=== PATIENT | female | born 1980 | race Caucasian/White ===

== ENCOUNTER 2017-04-15 05:33 | Inpatient (IN) | payer OTHER ==
[2017-04-15] MEDS ORDERED: MIDAZOLAM 1 MG/ML 2 ML INJ (06:46)
[2017-04-15] MEDS ORDERED: GLYCOPYRROLATE 0.4 MG INJ (06:46)
[2017-04-15] MEDS ORDERED: ROCURONIUM 50 MG INJ ×2 (06:46→07:00)
[2017-04-15] MEDS ORDERED: LIDOCAINE 2% (SDV) 5 ML INJ (06:46)
[2017-04-15] MEDS ORDERED: PROPOFOL 20 ML (06:46)
[2017-04-15] MEDS ORDERED: NEOSTIGMINE 3 MG/3 ML SYRINGE (06:46)
[2017-04-15] MEDS ORDERED: FENTAnyl 50 MCG/ML VIAL ×2 (06:47→09:36)
[2017-04-15] MEDS ORDERED: DEXAMETHASONE 4 MG/ML 1 ML INJ (06:52)
[2017-04-15] MEDS ORDERED: ONDANSETRON 4 MG INJ (06:53)
[2017-04-15] MEDS ORDERED: MEPERIDINE 25 MG INJ IV (07:00)
[2017-04-15] MEDS ORDERED: CEFAZOLIN 1 GM INJ (07:00)
[2017-04-15] MEDS ORDERED: hydrALAzine 20 MG INJ IV (07:00)
[2017-04-15] MEDS ORDERED: ONDANSETRON 4 MG INJ IV (07:00)
[2017-04-15] MEDS ORDERED: DIPHENHYDRAMINE 50 MG INJ IV (07:00)
[2017-04-15] MEDS ORDERED: FENTAnyl 50 MCG/ML VIAL IV ×2 (07:00)
[2017-04-15] MEDS ORDERED: LABETALOL HCL 20MG INJ IV (07:00)
[2017-04-15] MEDS ORDERED: MIDAZOLAM 1 MG/ML 2 ML INJ IV (07:00)
[2017-04-15] MEDS ORDERED: ATROPINE 1 MG/10 ML SYRINGE IV (07:00)
[2017-04-15] MEDS ORDERED: EPHEDrine SULFATE 50 MG/5 ML SYG IV (07:00)
[2017-04-15] MEDS ORDERED: LABETALOL HCL 20MG INJ (07:50)
[2017-04-15] MEDS ORDERED: hydrALAzine 20 MG INJ (07:58)
[2017-04-15] MEDS: BUPIVACAINE 0.25% (MPF) 30 ML INJ (08:15)
[2017-04-15] MEDS: GELATIN SIZE 100 SPONGE (08:56)
[2017-04-15] MEDS: HEPARIN 1000 UNITS/ML 10 ML INJ (08:57)
[2017-04-15] MEDS: THROMBIN 5000 UNIT VIAL (08:57)
[2017-04-15] MEDS: CEFAZOLIN 1 GM INJ (08:57)
[2017-04-15] MEDS ORDERED: LIDOCAINE 4% CR (09:33)
[2017-04-15] MEDS: CEFAZOLIN 2 GM/50 ML (PMX) 50 ML IVPB (11:19)
[2017-04-15] MEDS ORDERED: ZOLPIDEM 5 MG TAB PO (12:30)
[2017-04-15] MEDS ORDERED: DIPHENHYDRAMINE 50 MG CAP PO (12:30)
[2017-04-15] MEDS ORDERED: traMADol 50 MG TAB PO (12:30)
[2017-04-15] MEDS ORDERED: ACETAMINOPHEN 325 MG TAB PO (12:30)
[2017-04-15] MEDS ORDERED: TRIMETHOBENZAMIDE 100 MG/ML VIAL IM (12:30)
[2017-04-15] MEDS ORDERED: DIAZEPAM 5 MG/ML SYG IM (12:30)
[2017-04-15] MEDS ORDERED: NACL 0.9% 3 ML SYG IV (12:30)
[2017-04-15] MEDS ORDERED: PROCHLORPERAZINE 10 MG TAB PO (12:30)
[2017-04-15] MEDS ORDERED: NALOXONE (0.4 MG/ML) INJ IV (12:30)
[2017-04-15] MEDS ORDERED: BETHANECHOL 25 MG TAB PO (12:30)
[2017-04-15] MEDS: HYDROmorphONE 0.2 MG/ML PCA IV (12:50)
[2017-04-15] MEDS: DEXTROSE 5%-0.45% NACL 1,000 ML IV ×2 (14:18→22:22)
[2017-04-15] MEDS: CEPASTAT LOZENGE MT (14:22)
[2017-04-15] MEDS: ONDANSETRON 4 MG INJ IV ×2 (15:12→22:16)
[2017-04-15] MEDS: CEFAZOLIN 1 GM/50 ML (PMX) 50 ML IVPB (17:20)
[2017-04-15] MEDS: RANITIDINE 150 MG TAB PO (22:19)
[2017-04-16] MEDS: CEFAZOLIN 1 GM/50 ML (PMX) 50 ML IVPB ×3 (00:58→12:12)
[2017-04-16 05:32] LABS: HEMATOCRIT 24.8 % (37.0-47.0); HEMOGLOBIN 8.3 g/dl (12.0-16.0)
[2017-04-16 06:07] LABS: ANION GAP 10 (8-16); BLOOD UREA NITROGEN 8 mg/dl (7-20); CALCIUM 8.4 mg/dl (8.4-10.2); CARBON DIOXIDE 26 mmol/L (21-31); CHLORIDE 106 mmol/L (97-110); CREATININE 0.55 mg/dl (0.44-1.00); GLUCOSE 126 mg/dl (70-220); POTASSIUM 3.7 mmol/L (3.5-5.1); SODIUM 138 mmol/L (135-144)
[2017-04-16] MEDS: DEXTROSE 5%-0.45% NACL 1,000 ML IV (08:18)
[2017-04-16] MEDS: DOCUSATE SODIUM 100 MG CAP PO ×2 (08:26→20:08)
[2017-04-16] MEDS: RANITIDINE 150 MG TAB PO ×2 (08:26→20:08)
[2017-04-16] MEDS: FERROUS SULFATE (EC) 325 MG TAB PO ×3 (08:26→20:08)
[2017-04-16] MEDS: BETHANECHOL 25 MG TAB PO (08:26)
[2017-04-16] MEDS: ASCORBIC ACID 500 MG TAB PO ×2 (08:27→20:08)
[2017-04-16] MEDS ORDERED: SOD CHLORIDE 0.9% 250 ML IV ×2 (08:30→09:30)
[2017-04-16] MEDS: traMADol 50 MG TAB PO (09:05)
[2017-04-16] MEDS: SOD CHLORIDE 0.9% 250 ML IV (09:17)
[2017-04-16 09:54] LABS: ADD UMIC YES; UR ASCORBIC ACID NEGATIVE (NEGATIVE); UR BILIRUBIN (Dip) NEGATIVE (NEGATIVE); UR BLOOD (Dip) 1+ mg/dL (NEGATIVE); UR CLARITY CLEAR (CLEAR); UR COLOR STRAW (YELLOW); UR GLUCOSE (Dip) NEGATIVE (NEGATIVE); UR KETONES (Dip) NEGATIVE (NEGATIVE); UR LEUKOCYTE ESTERASE (Dip) NEGATIVE Leu/ul (NEGATIVE); UR NITRITE (Dip) NEGATIVE (NEGATIVE); UR RBC 1 /HPF (0-5); UR SPECIFIC GRAVITY (Dip) 1.004 (1.003-1.030); UR TOTAL PROTEIN (Dip) NEGATIVE (NEGATIVE); UR UROBILINOGEN (Dip) NEGATIVE (NEGATIVE); UR WBC 0 /HPF (0-5)
[2017-04-16] MEDS ORDERED: OXYCODONE/ACETAMINOPHEN (5/325) TAB PO (12:00)
[2017-04-16] MEDS: OXYCODONE/ACETAMINOPHEN (5/325) TAB PO ×3 (12:12→20:08)
[2017-04-16 13:10] LABS: HEMOGLOBIN 8.2 g/dl (12.0-16.0)
[2017-04-16 15:25] LABS: IRON 63 ug/dl (35-150)
[2017-04-16 15:34] LABS: % IRON SATURATION 22 % SAT (22-52); TOTAL IRON BINDING CAPACITY 282 ug/dl (241-421)
[2017-04-16 16:28] LABS: FERRITIN 59.4 ng/ml (6.2-137.0)
[2017-04-17] MEDS: OXYCODONE/ACETAMINOPHEN (5/325) TAB PO ×6 (00:07→17:33)
[2017-04-17] MEDS: DIAZEPAM 5 MG TAB PO (03:25)
[2017-04-17] MEDS: AL HYDROX/MG HYDROX/SIMETH 30 ML CUP PO (04:11)
[2017-04-17 06:04] LABS: ADD MAN DIFF? NO
[2017-04-17 06:24] LABS: BASOPHILS % 0.2 % (0.0-2.0); EOSINOPHILS # 0.1 10^3/ul (0.0-0.5); EOSINOPHILS % 0.9 % (0.0-7.0); HEMATOCRIT 25.7 % (37.0-47.0); HEMOGLOBIN 8.3 g/dl (12.0-16.0); LYMPHOCYTES # 2.7 10^3/ul (0.8-2.9); LYMPHOCYTES % 24.6 % (15.0-51.0); MEAN CORPUSCULAR HEMOGLOBIN 31.3 pg (29.0-33.0); MEAN CORPUSCULAR HGB CONC 32.3 g/dl (32.0-37.0); MEAN PLATELET VOLUME 9.5 fl (7.4-10.4); MONOCYTES % 9.4 % (0.0-11.0); NEUTROPHIL # 7.1 10^3/ul (1.6-7.5); NEUTROPHILS % 64.5 % (39.0-77.0); PLATELET COUNT 195 10^3/UL (140-415); RED BLOOD COUNT 2.65 10^6/ul (4.20-5.40); RED CELL DISTRIBUTION WIDTH 12.7 % (11.5-14.5)
[2017-04-17 06:56] LABS: ALANINE AMINOTRANSFERASE 27 IU/L (13-69); ALBUMIN 3.2 g/dl (3.3-4.9); ALBUMIN/GLOBULIN RATIO 1.14; ALKALINE PHOSPHATASE 43 IU/L (42-121); ANION GAP 11 (8-16); ASPARTATE AMINO TRANSFERASE 18 IU/L (15-46); BILIRUBIN,INDIRECT 0.3 mg/dl (0-1.1); BILIRUBIN,TOTAL 0.3 mg/dl (0.2-1.3); BLOOD UREA NITROGEN 9 mg/dl (7-20); CALCIUM 8.9 mg/dl (8.4-10.2); CARBON DIOXIDE 28 mmol/L (21-31); CHLORIDE 103 mmol/L (97-110); CREATININE 0.55 mg/dl (0.44-1.00); GLUCOSE 98 mg/dl (70-220); POTASSIUM 3.5 mmol/L (3.5-5.1); SODIUM 138 mmol/L (135-144)
[2017-04-17] MEDS: FERROUS SULFATE (EC) 325 MG TAB PO ×2 (08:39→13:32)
[2017-04-17] MEDS: RANITIDINE 150 MG TAB PO (08:39)
[2017-04-17] MEDS: DOCUSATE SODIUM 100 MG CAP PO (08:39)
[2017-04-17] MEDS: ASCORBIC ACID 500 MG TAB PO (08:39)
[2017-04-17] MEDS: ONDANSETRON 4 MG INJ IV (14:48)
== END 2017-04-17 19:40 | disposition home or self-care (01) | DRG 460 ==
LOC: REC 05:33 → MS1 13:46
PROC: 0SG30AJ Fusion of Lumbosacral Joint with Interbody Fusion Device, Posterior Approach, Anterior Column, Open Approach (ICD-10-PCS; principal; 2017-04-15 07:00)
PROC: 0SB40ZZ Excision of Lumbosacral Disc, Open Approach (ICD-10-PCS; 2017-04-15 07:00)
PROC: 4A11X4G Monitoring of Peripheral Nervous Electrical Activity, Intraoperative, External Approach (ICD-10-PCS; 2017-04-15 07:00)
DX: M51.17 Intervertebral disc disorders with radiculopathy, lumbosacral region (principal); E78.5 Hyperlipidemia, unspecified; D64.9 Anemia, unspecified
CPT/HCPCS: 72114; 80048; 80053; 81001; 82728; 83540; 85014; 85018; 85025; 86850; 86900; 86901; 86920; 87086; 97110; 97116; 97163; 97530